=== PATIENT | male | born 1995 | race Caucasian/White ===

== ENCOUNTER 2020-04-14 05:13 | Emergency (ER) | payer SELFPAY ==
[2020-04-14 05:13] VITALS: BP 142/93; PULSE 77; RESP 18; TEMP 36.6; O2SAT 98; BMI 32.5
--- NOTE | 2020-04-14 06:17 | ED.VIS.GEN ---
History of Present Illness Chief Complaint: Nosebleed Informant: Patient Onset: Today, Yesterday Context: Sudden Onset Timing: Intermittent Quality: Bleeding spontaneously Location: Left side Current Severity: Moderate Maximum Severity: Moderate Worsened by: Nothing Relieved by: Initially pressure Associated Symptoms: Nothing Narrative: Patient is a 24-year-old male who states while driving to work yesterday afternoon he had a nosebleed which stopped after a minute or 2. Had an another episode of bleeding at work that lasted 10 minutes. Approximately 30 minutes prior to presentation he developed another nosebleed. He was sitting with his fianc?e watching TV when his nose began to bleed. He states since it did not stop he presented to the emergency department. He has history of prior nosebleeds. He has not seen a local land clearer. He denies any history of blood dyscrasia. He is not on any antiplatelet or anticoagulant. He denies bruising easily. He denies allergies to antibiotics. He states he has blood in the back of his mouth. He states the 2 prior episodes were were controlled with pressure and leaning forward. Prior similar symptoms: Yes Recent Illness/Hospitalization: No - Past Medical History (1) No significant past medical history Status: Acute Past Medical History - Allergies and Home Meds Allergies/Adverse Reactions: Allergies No Known Allergies Allergy (Verified 04/14/20 05:17) Primary Care Physician: Care Physician,No Primary [Primary Care Provider] - Prior records reviewed: No Surgical History: no surgical history Lives: Spouse/ Significant Other Smoking Status: Former smoker Alcohol: Rare Drugs: None Review of Systems General: Denies: Chills, Fever, Malaise, Subjective, Sweats Eyes: Denies: Visual changes - bilaterally, Blurred Vision - bilaterally ENT: Reports: - - Spontaneous is nosebleed x3 past 24 hours. Denies: Bilateral ear pain, Rhinorrhea, Sore throat Cardiovascular: Denies: Chest pain, Palpitations Gastrointestinal: Denies: Nausea, Vomiting Musculoskeletal: Denies: Myalgias, Arthralgias Skin: Denies: Rash, Wounds Hematologic: Denies: Easy bruising, Easy bleeding Physical Exam Vital Signs/Narrative: Vital Signs Temp Pulse Resp BP Pulse Ox 04/14/20 05:13 97.9 F 77 18 142/93 H 98 Inital Vital Signs reviewed: Yes General: Well nourished, Well developed, Obese Head: Normocephalic, Atraumatic Eyes: Perrl, EOMI. Negative for: Pale conjunctiva, Scleral icterus ENT: Moist mucous membranes, No rhinorrhea, TM's clear, - - Blood noted left naris and posterior pharynx. No bleeding noted over Blane box plexus. Blood is noted in the area of the turbinates. Neck: Supple, Nontender, No lymphadenopathy, No JVD Cardiovascular: Regular rate, Regular rhythm, No murmurs, Normal S1, Normal S2 Respiratory: No distress, CTA bilaterally, Chest nontender Skin: Normal color, No rash Neurological: Alert, Oriented x3, Cranial nerves II-XII grossly intact, Normal Strength, Normal Sensation, Normal DTR, Normal Gait Psychological: Normal affect, Normal Mood Diagnostic/Tx/Re-eval - Medical Decision Making Patient had pressure applied. He continued to bleed. Examination reveals no obvious source over Blane box plexus, anterior bleed. There is blood noted up near the inferior turbinates. He is actively bleeding. A 7.5 cm Rhino Rocket was placed with no complications. He tolerated procedure well. The balloon was inflated. He was reassessed 15 minutes later and had no active bleeding. Nurse was instructed to ambulate patient and amoxicillin was ordered. Patient ambulate around the emergency part with no bleeding. Plan is to discharge to home with prescription for amoxicillin and referral to Dr. Royal Brown who is on-call for ENT. ED Disposition - Plan for ED Patient: Disposition: Home or Assisted Living Diagnosis: Left-sided epistaxis Instructions: ED Epistaxis (Adult) Prescriptions: Amoxicillin 500 mg PO TID #14 tab Transmission Status: Pending to [facility]/pharmacy #[id number] Referrals: Care Physician,No Primary [Primary Care Provider] - Royal Brown MD [STAFF PHYSICIAN] - 3-5 Days Additional Instructions: Call Dr. Brown office after 8 AM. Inform him that you were seen in the emergency room with a nosebleed. Schedule follow-up in 3 to 5 days.
[2020-04-14] MEDS: Mixture 30 ML Bottle 5 ML TOPICAL (06:20)
[2020-04-14] MEDS: AMOXICILLIN 500 MG CAPSULE PO (06:29)
--- NOTE | 2020-04-14 06:30 | ED.RN ---
did well ambulating with no bleeding noted at this time.
== END 2020-04-14 07:01 | disposition home or self-care (01) ==
PROVIDERS: Emergency Provider Emergency Medicine
DX: R04.0 Epistaxis (principal); Z87.891 Personal history of nicotine dependence; E66.9 Obesity, unspecified
CPT/HCPCS: 30903; 99283

== ENCOUNTER 2023-08-15 17:26 | Emergency (ER) | payer MEDICAID, SELFPAY ==
[2023-08-15 17:28] VITALS: BP 126/75; PULSE 109; RESP 18; TEMP 36.3; O2SAT 98; BMI 36.6
--- NOTE | 2023-08-15 17:39 | EX.ED.UPPERE ---
HPI History of Present Illness HPI Narrative: Patient presents with a laceration to his left thumb that occurred today. Patient states he was using a knife to cut some plastic when it slipped and cut his thumb. Patient states his last tetanus was less than 5 years ago. Patient states he has some pain whenever he tries to flex his IP joint. Patient admits to some numbness and tingling into the tip of his left thumb. Patient states the bleeding has been persistent. Patient denies any other injuries. Chief Complaint: Laceration Informant: patient Occured/Mechanism Comment: Cut with a knife Onset/Context/Timing Onset: Today Context: Sudden Onset Timing: Continuous Location: Left thumb Worsened by: Flexion Relieved by: Nothing Associated Symptoms Associated Symptoms: Positive for Parasthesia; Negative for Weakness or Loss of Funtion Narrative Tetanus Immunization: <5 years PFSH PFSH Medical History no medical history no medical history Home Medications ?Medication ?Instructions ?Recorded ?Last Taken ?Type amoxicillin 500 mg tablet 500 mg PO TID #14 tabs 04/14/20 Unknown Rx cephalexin 500 mg capsule 500 mg PO Q6 #40 CAPSULES 08/15/23 Unknown Rx Allergy/AdvReac Type Severity Reaction Status Date / Time No Known Allergies Allergy Verified 08/15/23 17:27 Surgical History no surgical history no surgical history Social History (Updated 08/15/23 @ 17:[address] Royal Jeffrey, DO) Smoking Status: Current some day smoker Electronic Cigarette Use: with nicotine alcohol intake: current alcohol intake frequency: a few times a month ROS ROS ED Constitutional Constitutional ED: Denies chills or fever(s) Eyes Eyes: Denies blurry vision or change in vision ENT ENT ED: Denies rhinorrhea or sore throat Cardiovascular Cardiovascular: Denies chest pain or palpitations Respiratory/Chest Respiratory/Chest: Denies cough or dyspnea Gastrointestinal Gastrointestinal: Denies nausea or vomiting Genitourinary Genitourinary ED: Denies dysuria or hematuria Musculoskeletal Musculoskeletal: Denies back pain or neck pain Integumentary Denies abscess or rash Neurologic Neurologic: Denies headache(s) or weakness Allergic/Immunologic Allergic/Immunologic ED: Denies mouth swelling or urticaria EXAM Physical Exam Const Vital Signs: 08/15/23 17:28 Temperature 97.3 F L Temperature Source Temporal Pulse Rate 109 H Respiratory Rate 18 Blood Pressure 126/75 H Blood Pressure Mean 92 Pulse Ox 98 Oxygen Delivery Method Room Air Positive well nourished and well developed General Appearance ED: well developed and NAD HEENT Reports moist mucous membranes Neck full ROM and supple Extremity Extremity Narrative: There is a 1 cm full-thickness linear laceration over the palmar aspect of the proximal phalanx of the left thumb. There is mild gapping of the wound margins. There are no foreign bodies visualized. There is no active bleeding noted. Patient is able to flex and extend the MP and IP joints. There are no sensory deficits noted. Neuro oriented x3, CN's II-XII intact bilaterally, moves all extremities, no focal motor deficits and no sensory deficits noted Sensorium / Orientation: alert Motor Exam: strength 5/5 throughout Psych mental status grossly normal MDM MDM MDM Narrative Medical decision making narrative: The wound was cleaned and irrigated with copious amounts of normal saline. [place] was applied. The wound was explored. There were no tendon lacerations visualized. There were no foreign bodies noted. The wound was anesthetized with 1% plain lidocaine via digital block. The wound was closed with 3 simple interrupted #4-0 nylon sutures under sterile technique. Patient tolerated the procedure well. Bacitracin dressing was applied. Patient was given a dose of Keflex here. Patient was given a prescription for Keflex. Patient was instructed to keep the wound clean and dry. Patient was instructed to change the dressing twice daily. Patient was instructed to follow-up with his primary care physician in 7 days for wound recheck and suture removal. Patient understood and was agreeable with the plan. All questions were answered. Procedures Lacerations Left thumb: Length: 1 cm Depth: Sub Q Shape: Linear Prep: Sterile Conditions and Chlorhexadine Laceration repair: Digital block, Irrigated, Lidocaine, Nerve block, Skin sutures (3) and Wound explored Irrigated (ml): 100 Number of Sutures/[place]: 3 Suture Information: Ethilon, Simple and 4-0 Discharge Plan Triage Chief Complaint: Laceration ED Provider: Royal Jeffrey Dx/Rx/DC Orders Clinical Impression: Laceration of left thumb Instructions: ED Laceration, Hand: All Closures Prescriptions: New cephalexin 500 mg capsule 500 mg PO Q6 Qty: 40 0RF No Action amoxicillin 500 MG tablet 500 mg PO TID Qty: 14 0RF Primary Care Provider: Care Physician,No Primary Referrals: Geneva Martel MD [Med Staff - [facility]] - 7 Days for suture removal Care Physician,No Primary [Primary Care Provider] - Print Language: Romanian Disposition Disposition: Home, Self Care
[2023-08-15] MEDS: Lidocaine 1% (20 ml mdv) 20 ML Vial INFILT (17:58)
[2023-08-15] MEDS: Cephalexin 500 MG Capsule PO (17:59)
== END 2023-08-15 18:30 | disposition home or self-care (01) ==
PROVIDERS: Emergency Provider Emergency Medicine; Visit Provider Emergency Medicine
DX: S61.012A Laceration without foreign body of left thumb without damage to nail, initial encounter (principal); F17.290 Nicotine dependence, other tobacco product, uncomplicated; W26.0XXA Contact with knife, initial encounter
CPT/HCPCS: 12001; 99283